=== PATIENT | female | born 1950 | race African-American/Black ===

== ENCOUNTER 2024-06-26 16:52 | Emergency (ER) | payer BC ==
[~2024-06-26] VITALS: Ht 165.1 cm; Wt 88.5 kg
[2024-06-26 17:04] VITALS: BP_SYST 167; PULSE 65; RESP 16; TEMP 97.5; O2SAT 98
[2024-06-26 18:24] LABS: BILIRUBIN,URINE NEGATIVE (NEGATIVE); BLOOD, URINE NEGATIVE (NEGATIVE); CLARITY/URINE CLEAR (CLEAR); GLUCOSE,URINE NEGATIVE (NEGATIVE); KETONES,URINE NEGATIVE (NEGATIVE); LEUKOCYTE ESTERASE ,URINE NEGATIVE (NEGATIVE); NITRITE, URINE NEGATIVE (NEGATIVE); PROTEIN URINE NEGATIVE (NEGATIVE); UROBILINOGEN,URINE 0.2 (0.2-1.0)
[2024-06-26 18:25] LABS: COLOR,URINE STRAW (YELLOW)
== END 2024-06-26 18:55 | disposition home or self-care (01) ==
LOC: SED 16:52
DX: R33.8 Other retention of urine (principal); Z85.51 Personal history of malignant neoplasm of bladder; Z98.890 Other specified postprocedural states; Z88.2 Allergy status to sulfonamides; Z88.8 Allergy status to other drugs, medicaments and biological substances
CPT/HCPCS: 81001; 81003; 99283